=== PATIENT | male | born 1985 | race Two or more races ===

== ENCOUNTER 2021-04-03 19:33 | Emergency (ER) | payer OTHER ==
[~2021-04-03] VITALS: Ht 180.3 cm; Wt 95.4 kg
[2021-04-03] MEDS ORDERED: DEXAMETHASONE 4 MG TABLET PO ONE (20:00)
[2021-04-03] MEDS ORDERED: PLEASE ENTER ALLERGIES MC SCH (20:30)
[2021-04-03] MEDS ORDERED: DEXAMETHASONE 4 MG TABLET ONE (22:39)
[2021-04-03 22:41] VITALS: BP 129/89
== END 2021-04-03 23:59 | disposition home or self-care (01) ==
LOC: ED 19:45
DX: J02.9 Acute pharyngitis, unspecified (principal); T78.1XXA Other adverse food reactions, not elsewhere classified, initial encounter; X58.XXXA Exposure to other specified factors, initial encounter
CPT/HCPCS: 87081; 87880; 99283